=== PATIENT | female | born 1965 | race Caucasian/White ===

== ENCOUNTER 2019-01-13 16:27 | Outpatient (REF) | payer SELFPAY ==
--- NOTE | 2019-01-13 15:40 | PAPFT_PTH ---
PATIENT: MIGUEL SHAH LOC: [facility]#:[id number] AGE/SX: 53/F ROOM: RE01/13/[address]: Misti Landers : 1965 BED: DIS: 01/13/2019 SPEC #: [id number] RECD: 01/14/19 12:35 STATUS: FRANKIE RECecilia #: [id number] EDMOND: 01/13/19 15:[address]: Misti Landers DEPT: [facility] Cytology RECD BY: Jimena Denney ENTERED: 01/14/19 12:35 SP TYPE: PAPFT OTHR DR: Isidro Rowley Tissues: 1 - CX/ENDOCX FOR PAP SMEARS Procedures: PAP THIN PREP/[facility] Screening HPV DNA PROBE Comments: [id number]
== END 2019-01-13 16:47 ==
LOC: NCHCN 16:27
PROVIDERS: PCP Internal Medicine; Visit Provider Internal Medicine
DX: Z12.4 Encounter for screening for malignant neoplasm of cervix (principal); Z00.00 Encounter for general adult medical examination without abnormal findings
CPT/HCPCS: 88142; 87624

== ENCOUNTER 2019-12-05 13:15 | Outpatient (REF) | payer BC, SELFPAY ==
[2019-12-05 21:21] LABS: ALT 48 U/L (14-59); AST 27 U/L (15-37); Albumin 4.2 g/dL (3.4-5.0); Alkaline Phosphatase 64 U/L (46-116); Anion Gap 5.8 mmol/L (3-11); BUN 9 mg/dL (7-18); Bilirubin, Total 0.9 mg/dL (0.2-1.0); CO2 30.2 mmol/L (21.0-32.0); Calcium 9.4 mg/dL (8.5-10.1); Chloride 105 mmol/L (98-107); Glucose 99 mg/dL (74-106); Potassium 4.8 mmol/L (3.5-5.1); Sodium 141 mmol/L (136-145); TSH 0.47 uIU/mL (0.36-3.74)
== END 2019-12-05 13:35 ==
LOC: NCHCN 13:15
PROVIDERS: PCP Internal Medicine; Visit Provider Internal Medicine
DX: F41.9 Anxiety disorder, unspecified (principal); Z72.89 Other problems related to lifestyle
CPT/HCPCS: 80053; 84443